=== PATIENT | female | born 1950 | race Caucasian/White ===

== ENCOUNTER 2019-02-07 06:34 | Day surgery (SDC) | payer MEDICARE ==
[2019-02-07] MEDS ORDERED: Sodium Bicarbonate 8.4% IV* 50 ML VIAL ONE (07:02)
[2019-02-07] MEDS ORDERED: Lidocaine 1% MPF wEPI 200,000* 30 ML SDV ONE (07:03)
[2019-02-07] MEDS ORDERED: Lidocaine 1% MPF* 2 ML VIAL ONE (07:34)
[2019-02-07] MEDS ORDERED: Betamethasone INJ* 6 MG/ML 5 ML VIAL (30 MG) ONE (07:34)
[2019-02-07] MEDS ORDERED: Bupivacaine 0.25% SDV PF* 10 ML VIAL INJ ONE (08:20)
[2019-02-07 08:38] VITALS: BP 123/89
--- NOTE | 2019-02-07 13:05 | OP ---
DATE OF OPERATION: 02/07/19 [facility] DATE OF : 54 SURGEON: Nico Carmona MD MOLECULAR BIOLOGIST: None. ANESTHESIOLOGIST: None. ANESTHESIA: Local only with 1% lidocaine with epinephrine and bicarbonate. PRE-OP DIAGNOSES: 1. Right small trigger finger. 2. Left index trigger finger. POST-OP DIAGNOSES: 1. Right small trigger finger. 2. Left index trigger finger. OPERATIVE PROCEDURE: 1. Right small trigger finger release. 2. Left index trigger finger corticosteroid injection. INDICATIONS: Diana has the trigger fingers, we talked about treatment options. She has had other trigger fingers released in the past. She wanted to proceed with surgery. ESTIMATED BLOOD LOSS: 5 mL. COMPLICATIONS: None. FINDINGS: See above and below. DESCRIPTION OF PROCEDURE: Diana was seen in the preoperative holding area. The correct site, side, and procedure were identified. We had a time-out and then I infiltrated the right small finger A1 aryan area with 1% lidocaine with epinephrine and bicarbonate. I then went over and I injected the left index finger A1 aryan area and tendon sheath with 1 mL 1% lidocaine and 6 mg of betamethasone. She tolerated that very well. I then came back to operating room, where the right arm was prepped and draped in the usual fashion and time-out was performed. I made a 1 cm longitudinal incision over the right small finger A1 aryan. Dissection was carried down and full-thickness flaps were bluntly raised off of the tendon sheath. Ragnell retractors were placed. The A1 aryan was released longitudinally in line with the tendon. The release was completed distally and proximally with the tenotomy scissors. There was fraying of the tendon underneath the aryan system. I then had her open and close the hand multiple times. There was no triggering, so irrigated out the wounds. Skin was closed with 4-0 nylon suture. The wounds were dressed and she was taken to the recovery room in stable condition. [id number]/[facility] #: [id number] KAREN
== END 2019-02-07 08:40 | disposition home or self-care (01) ==
LOC: OREAST 06:34
PROVIDERS: ATTEND Orthopaedic Surgery Hand Surgery
DX: M65.351 Trigger finger, right little finger (principal); M65.322 Trigger finger, left index finger; E11.9 Type 2 diabetes mellitus without complications; Z79.84 Long term (current) use of oral hypoglycemic drugs; I10 Essential (primary) hypertension; M19.90 Unspecified osteoarthritis, unspecified site
CPT/HCPCS: J0702; J2001; J3490